=== PATIENT | female | born 1945 | race Caucasian/White ===

== ENCOUNTER 2017-09-10 09:32 | Outpatient (RCR) | payer MEDICARE, SELFPAY ==
[2017-09-10 10:31] LABS: Absolute Lymphocyte Count 2.01 X10^3/ul (0.83-4.51); Absolute Neutrophil Count 3.3 X10^3/uL (2.0-7.7); Basophil# 0.05 X10^3/uL; Basophil% 0.8 % (0-1); Eosinophil# 0.27 X10^3/uL; Eosinophils% 4.4 % (0-5); Hematocrit 36.4 % (37-47); Hemoglobin 11.6 g/dl (12.0-15.0); Lymphocyte # 2.01 X10^3/ul (4.0); Lymphocyte % 32.7 % (19-41); Mean Corp Hgb Conc 31.9 g/gl (32-36); Mean Corpuscular Hgb 30.1 pg (27.0-32.0); Mean Corpuscular Volume 94.3 fL (81-99); Mean Platelet Vol. 9.4 fl (6.2-12.0); Monocyte# 0.52 X10^3/uL; Monocyte% 8.5 % (0-10); Neutrophil # 3.27 X10^3/uL (2.7-7.7); Neutrophil % 53.3 % (47-70); Platelet Count 259 K/mm3 (150-450); RBC Distribution Width CV 14.9 % (11.6-14.6); RBC Distribution Width SD 49.8 fl (35.1-43.9); Red Blood Count 3.86 M/mm3 (4.2-5.4); White Blood Count 6.1 K/mm3 (4.4-11.0)
[2017-09-10 10:34] LABS: POSITIVE COUNT NO; POSITIVE DIFFERENTIAL NO; POSITIVE MORPHOLOGY NO
[2017-09-10 10:42] LABS: Erythrocyte Sedimentation Rate 10 mm/hr (0-30)
[2017-09-10 10:47] LABS: Carbamazepine (Tegretol) 10.2 ug/mL (4.0-12.0)
[2017-09-10 10:55] LABS: AST(SGOT) 8 U/L (15-37); Alanine Aminotransfer ALT/SGPT 17 U/L (12-78); Albumin, Serum 3.2 g/dL (3.4-5.0); Alkaline Phosphatase 72 U/L (45-117); Anion Gap 5 (5-15); BUN 18 mg/dL (7-18); BUN/Creat Ratio 23.2 RATIO (10-20); Calcium,Total 8.8 mg/dL (8.5-10.1); Chloride 104 mmol/L (98-107); Creatinine, Serum 0.78 mg/dL (0.55-1.02); EST Glomerular Filtration Rate 77 mL/min (>60); Est Glom Filt Rate - Afr Amer 94 mL/min (>60); Globulin 3.3 g/dL (2.2-4.2); Glucose 95 mg/dL (70-110); Protein, Total 6.5 g/dL (6.4-8.2); Sodium Level 140 mmol/L (136-145)
== END 2017-09-10 10:00 | disposition home or self-care (01) ==
LOC: LAB 09:32
PROVIDERS: Family Provider Family Medicine; PCP Family Medicine; Visit Provider Psychiatry & Neurology Neurology
DX: G43.009 Migraine without aura, not intractable, without status migrainosus (principal); M31.6 Other giant cell arteritis; M54.2 Cervicalgia; R42 Dizziness and giddiness; E11.9 Type 2 diabetes mellitus without complications; I10 Essential (primary) hypertension; E78.00 Pure hypercholesterolemia, unspecified
CPT/HCPCS: 80053; 80156; 85025; 85652; 86140

== ENCOUNTER 2017-10-29 10:00 | Outpatient (RCR) | payer MEDICARE, SELFPAY ==
--- NOTE | 2017-09-19 11:14 | HP.PTEVAL_ITS ---
Patient's Visit Information STEWART MENDEZ is a 71 year old F referred to Physical Therapy by MD HUBERT Bhatti with a diagnosis of Neck Pain. 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 She thought it would go away but it has not gotten better. Is on medication which has helped a lot but she doesn 't want to be on medication forever. Agg: reaching overhead, grabbing from the floor. Nuerologist thinks its from her neck. Takes medication, nap and then the pain goes away. She is tender along the occiput. MERCADO are normal on the temples. Has a MERCADO daily most of the time its a whisper and she pushes through. MERCADO only stop her only 1x a week. No blurred vision or dizziness. Sensative to light and sound all the time. No radiating pain. X-rays of the neck which showed arthritis. Has not had an MRI but does not want to have one. She has had a CT Scan. Dr. Thomas is her neurologist. MERCADO are not worse or better they just stay the same. Sleep: can't sleep on the right side will hear a thumping that wakes her up. pmhx: HTN, auto immune disease Meds: Carbomazapene, herbosartin, Metformin, Prednisone. - Objective Posture: FH, RS, increased kyphosis. Gait: no deviation noted. Palpation: tender along upper trap, levator, SCM, temporalis, occiput. ROM: WNL in all planes. Strength: Cervical: 4+/5, Shoulder: 4+/5, Scap: fair - Goals Goal 1:: Patient will be I with HEP and progression. Goal Time Frame: 4-6 Weeks Goal 2:: Patient will report 1 MERCADO per week Goal Time Frame: 4-6 Weeks Goal 3:: Patient will maintain proper posture t/o tx session to demo increased scap s/s Goal Time Frame: 4-6 Weeks - Rehabilitation Potential Physical Therapy Diagnosis: Patient presents with hypomobility- she has poor posture leading to MERCADO Rehabilitation Potential: Good - Anticipated Interventions Patient/Client Instruction: Educate patient on: Benefits of Fitness Program For the Purpose of:: To increase tolerance to activity/condition/position Therapeutic Exercise to Include: Strength training, Endurance training, Body mechanics, Postural training, Scapular Strength/Stabilization For the Purpose of:: To improve muscle performance and motor function Manual Therapy Techniques to Include: Soft tissue mobilization For the Purpose of:: To improve muscle performance and motor function Thank you for the opportunity to evaluate your patient. For Medicare and Medicare HMO plans, please review the plan of care and approve it. It will need to be FAXED BACK to us at [phone] for Medicare purposes. Please let me know if there are questions or concerns regarding this plan of care. Physician Signature: Date:
--- NOTE | 2017-10-29 10:26 | HP.PTDCSUM ---
HP - PT D/C Summary It has been my pleasure to treat STEWART MENDEZ under orders from Jim Thomas MD, for the diagnosis of Neck Pain for a total of 5 visit(s). Discharge Date: Please see the following information for a summary of their discharge status. - Subjective Subjective: Patient reports that she feels that she is better- the MERCADO are not just mild and she has not had a bad MERCADO for a few weeks. patient is sleeping well- at night and does nap during the day. - Overall Improvement % Improvement: 80 - Objective Objective/Function: Posture: improved- mild FH- sitting up taller. palpation: not tender- does have increased muscle tightness in UT. ROM: WNl in all planes. Strength: 5/5 throughout UE- Scap: fair - Goals Goal 1:: Patient will be I with HEP and progression. Goal Progress: Goal Met Goal 2:: Patient will report 1 MERCADO per week Goal Progress: Progressing Goal 3:: Patient will maintain proper posture t/o tx session to demo increased scap s/s Goal Progress: Goal Met - Plan Plan: Discharge to I HEP - D/C Information If there are questions or concerns regarding this patient's physical therapy, please feel free to call me at [phone]. Thank you for the referral of this patient. Sincerely, Ericka Jason
== END 2017-10-29 19:00 | disposition home or self-care (01) ==
LOC: PT 10:00
PROVIDERS: Family Provider Family Medicine; PCP Family Medicine; Visit Provider Psychiatry & Neurology Neurology
DX: M54.2 Cervicalgia (principal)
CPT/HCPCS: 97110; 97140; 97161; 97530

== ENCOUNTER → 2017-12-17 10:07 | Outpatient (CLI) | payer MEDICARE, SELFPAY ==
[2017-12-17 11:09] LABS: Basophil# 0.05 X10^3/uL; Eosinophil# 0.21 X10^3/uL; Hematocrit 37.7 % (37-47); Lymphocyte % 28.6 % (19-41); Mean Corp Hgb Conc 31.8 g/gl (32-36); Mean Corpuscular Hgb 29.7 pg (27.0-32.0); Mean Corpuscular Volume 93.3 fL (81-99); Mean Platelet Vol. 9.1 fl (6.2-12.0); Monocyte# 0.46 X10^3/uL; Monocyte% 8.8 % (0-10); Neutrophil # 3.02 X10^3/uL (2.7-7.7); Neutrophil % 57.4 % (47-70); Platelet Count 264 K/mm3 (150-450); RBC Distribution Width CV 14.3 % (11.6-14.6); Red Blood Count 4.04 M/mm3 (4.2-5.4); White Blood Count 5.3 K/mm3 (4.4-11.0)
[2017-12-17 11:10] LABS: Erythrocyte Sedimentation Rate 15 mm/hr (0-30)
[2017-12-17 11:11] LABS: POSITIVE COUNT NO; POSITIVE DIFFERENTIAL NO; POSITIVE MORPHOLOGY NO
[2017-12-17 11:15] LABS: Microalbumin,Random Urine 6.4 mg/L (NO RANGE EST.); Microalbumin:Creatinine Ratio 8.2 mg/g CRE (<30 mg/g CRE)
[2017-12-17 11:27] LABS: Hemoglobin A1c 6.6 % (4.2-6.3)
[2017-12-17 11:31] LABS: Carbamazepine (Tegretol) 10.7 ug/mL (4.0-12.0)
[2017-12-17 11:40] LABS: AST(SGOT) 12 U/L (15-37); Alanine Aminotransfer ALT/SGPT 18 U/L (13-56); Albumin, Serum 3.2 g/dL (3.2-5.0); Alkaline Phosphatase 70 U/L (45-117); Anion Gap 5 (5-15); BUN 15 mg/dL (7-18); BUN/Creat Ratio 18.6 RATIO (10-20); Calcium,Total 8.7 mg/dL (8.5-10.1); Chloride 101 mmol/L (98-107); EST Glomerular Filtration Rate 74 mL/min (>60); Est Glom Filt Rate - Afr Amer 90 mL/min (>60); Globulin 3.3 g/dL (2.2-4.2); Glucose 97 mg/dL (74-106); Potassium 4.3 mmol/L (3.5-5.1); Protein, Total 6.5 g/dL (6.4-8.2); Sodium Level 137 mmol/L (136-145); Thyroid Stim Hormone (TSH) 2.26 uIU/mL (0.358-3.74)
== END ==
PROVIDERS: Family Provider Family Medicine; PCP Family Medicine; Visit Provider Family Medicine
DX: E11.9 Type 2 diabetes mellitus without complications (principal); E03.9 Hypothyroidism, unspecified; Z79.899 Other long term (current) drug therapy; G43.009 Migraine without aura, not intractable, without status migrainosus; M31.6 Other giant cell arteritis; M54.2 Cervicalgia; R51 Headache
CPT/HCPCS: 36415; 80053; 80156; 82043; 82570; 83036; 84443; 85025; 85652; 86140

== ENCOUNTER 2018-03-12 11:09 | Outpatient (RCR) | payer MEDICARE, SELFPAY ==
[2018-03-12 12:15] LABS: Erythrocyte Sedimentation Rate 17 mm/hr (0-30)
[2018-03-12 12:27] LABS: Absolute Lymphocyte Count 1.47 X10^3/ul (0.83-4.51); Absolute Neutrophil Count 4.5 X10^3/uL (2.0-7.7); Basophil# 0.04 X10^3/uL; Basophil% 0.6 % (0-1); Eosinophil# 0.15 X10^3/uL; Eosinophils% 2.2 % (0-5); Hematocrit 36.5 % (37-47); Hemoglobin 11.4 g/dl (12.0-15.0); Lymphocyte # 1.47 X10^3/ul (4.0); Lymphocyte % 21.8 % (19-41); Mean Corp Hgb Conc 31.2 g/gl (32-36); Mean Corpuscular Hgb 29.3 pg (27.0-32.0); Mean Corpuscular Volume 93.8 fL (81-99); Mean Platelet Vol. 9.6 fl (6.2-12.0); Monocyte# 0.56 X10^3/uL; Monocyte% 8.3 % (0-10); Neutrophil # 4.51 X10^3/uL (2.7-7.7); Neutrophil % 66.8 % (47-70); POSITIVE COUNT NO; POSITIVE DIFFERENTIAL NO; POSITIVE MORPHOLOGY NO; Platelet Count 240 K/mm3 (150-450); RBC Distribution Width CV 14.9 % (11.6-14.6); RBC Distribution Width SD 50.7 fl (35.1-43.9); Red Blood Count 3.89 M/mm3 (4.2-5.4); White Blood Count 6.8 K/mm3 (4.4-11.0)
== END 2018-03-12 12:00 | disposition home or self-care (01) ==
LOC: LAB 11:09
PROVIDERS: Family Provider Family Medicine; PCP Family Medicine
DX: M31.6 Other giant cell arteritis (principal)
CPT/HCPCS: 36415; 85025; 85652; 86140

== ENCOUNTER → 2018-03-26 09:31 | Outpatient (CLI) | payer MEDICARE, SELFPAY ==
[2018-03-26 11:20] LABS: Carbamazepine (Tegretol) 7.6 ug/mL (4.0-12.0)
[2018-03-26 11:21] LABS: AST(SGOT) 12 U/L (15-37); Alanine Aminotransfer ALT/SGPT 19 U/L (13-56); Albumin, Serum 3.2 g/dL (3.2-5.0); Alkaline Phosphatase 69 U/L (45-117); Anion Gap 6 (5-15); BUN 18 mg/dL (7-18); Calcium,Total 8.8 mg/dL (8.5-10.1); Chloride 106 mmol/L (98-107); Creatinine, Serum 0.82 mg/dL (0.55-1.02); EST Glomerular Filtration Rate 73 mL/min (>60); Est Glom Filt Rate - Afr Amer 88 mL/min (>60); Globulin 3.3 g/dL (2.2-4.2); Glucose 99 mg/dL (74-106); Potassium 4.1 mmol/L (3.5-5.1); Protein, Total 6.5 g/dL (6.4-8.2); Sodium Level 143 mmol/L (136-145)
== END ==
PROVIDERS: Family Provider Family Medicine; PCP Family Medicine; Visit Provider Psychiatry & Neurology Neurology
DX: E78.5 Hyperlipidemia, unspecified (principal); M31.6 Other giant cell arteritis; R79.82 Elevated C-reactive protein (CRP); R41.3 Other amnesia; R51 Headache
CPT/HCPCS: 36415; 80053; 80156; 86141

== ENCOUNTER → 2018-06-05 08:43 | Outpatient (CLI) | payer MEDICARE, SELFPAY ==
[2018-06-05 09:31] LABS: Erythrocyte Sedimentation Rate 10 mm/hr (0-30)
[2018-06-05 09:33] LABS: Absolute Lymphocyte Count 1.54 X10^3/ul (0.83-4.51); Absolute Neutrophil Count 3.1 X10^3/uL (2.0-7.7); Basophil# 0.03 X10^3/uL; Basophil% 0.6 % (0-1); Eosinophil# 0.21 X10^3/uL; Hematocrit 36.7 % (37-47); Hemoglobin 11.6 g/dl (12.0-15.0); Lymphocyte # 1.54 X10^3/ul (4.0); Lymphocyte % 29.1 % (19-41); Mean Corp Hgb Conc 31.6 g/gl (32-36); Mean Corpuscular Hgb 29.7 pg (27.0-32.0); Mean Corpuscular Volume 93.9 fL (81-99); Mean Platelet Vol. 9.1 fl (6.2-12.0); Monocyte# 0.45 X10^3/uL; Monocyte% 8.5 % (0-10); Neutrophil # 3.05 X10^3/uL (2.7-7.7); Neutrophil % 57.6 % (47-70); Platelet Count 230 K/mm3 (150-450); RBC Distribution Width CV 14.6 % (11.6-14.6); RBC Distribution Width SD 49.6 fl (35.1-43.9); Red Blood Count 3.91 M/mm3 (4.2-5.4); White Blood Count 5.3 K/mm3 (4.4-11.0)
[2018-06-05 09:34] LABS: POSITIVE COUNT NO; POSITIVE DIFFERENTIAL NO; POSITIVE MORPHOLOGY NO
[2018-06-05 09:48] LABS: Hemoglobin A1c 6.8 % (4.2-6.3)
[2018-06-05 10:01] LABS: AST(SGOT) 9 U/L (15-37); Alanine Aminotransfer ALT/SGPT 18 U/L (13-56); Albumin, Serum 3.2 g/dL (3.2-5.0); Alkaline Phosphatase 64 U/L (45-117); Anion Gap 6 (5-15); BUN 15 mg/dL (7-18); BUN/Creat Ratio 16.7 RATIO (10-20); Calcium,Total 9.1 mg/dL (8.5-10.1); Chloride 100 mmol/L (98-107); EST Glomerular Filtration Rate 65 mL/min (>60); Est Glom Filt Rate - Afr Amer 79 mL/min (>60); Globulin 3.2 g/dL (2.2-4.2); Glucose 103 mg/dL (74-106); Potassium 4.1 mmol/L (3.5-5.1); Protein, Total 6.4 g/dL (6.4-8.2); Sodium Level 138 mmol/L (136-145)
== END ==
PROVIDERS: Family Provider Family Medicine; PCP Family Medicine; Referring Provider Psychiatry & Neurology Neurology; Visit Provider Psychiatry & Neurology Neurology
DX: G47.33 Obstructive sleep apnea (adult) (pediatric) (principal); R41.3 Other amnesia; R51 Headache; M31.6 Other giant cell arteritis; R79.82 Elevated C-reactive protein (CRP); E11.9 Type 2 diabetes mellitus without complications
CPT/HCPCS: 36415; 80053; 80156; 83036; 85025; 85652; 86140

== ENCOUNTER → 2019-03-19 08:33 | Outpatient (CLI) | payer MEDICARE, SELFPAY ==
[2019-03-10 10:42] VITALS: BMI 37.3
--- NOTE | 2019-03-19 08:38 | BI_ITS ---
MAMMOGRAPHY - BILATERAL SCREENING REASON FOR EXAM: Female, 73 years old. Routine annual screening examination. PERTINENT HISTORY: Non-contributory. TECHNIQUE: Digital bilateral breast lizeth (3D mammographic acquisition) in the CC and MLO projections. 2-D mediolateral oblique (MLO) and craniocaudad (CC) views of both breasts were obtained. CAD: Full Field Digital Mammography with Computer Added Detection was performed. COMPARISON: Comparison is made with prior outside examination dated January 30, 2018. FINDINGS: Breast Composition: There are scattered areas of fibroglandular density. There are no dominant masses or suspicious calcifications. Bilateral secretory calcifications which are unchanged. I suspect there are multiple calcifications in the inferior medial aspect of the left breast. These have increased in number as compared to prior study. The patient will be recalled for tangential views. No other significant abnormalities are identified. BI/SCREEN MAMM (CAD) W/LIZETH BILAT IMPRESSION: Findings suggestive of a increasing dermal calcifications in the inferior medial aspect of the left breast as described. The patient will be recalled for additional views including tangential views. Recall Side: Left Breast ASSESSMENT CATEGORY: BIRADS Category 0: Incomplete. Need additional imaging evaluation. A letter regarding these results will be sent to the patient by the facility within 30 days. Approximately 10% of breast cancers are not detected by mammography. A normal mammogram should not delay biopsy of a clinically suspicious abnormality. [id number] Electronically Signed: Dick Cotto, at 10:12 EDT , Service support ,
== END ==
PROVIDERS: Family Provider Family Medicine; PCP Family Medicine; Referring Provider Nurse Practitioner Women's Health; Visit Provider Nurse Practitioner Women's Health
DX: Z12.31 Encounter for screening mammogram for malignant neoplasm of breast (principal)
CPT/HCPCS: 77063; 77067

== ENCOUNTER → 2019-03-20 13:18 | Outpatient (CLI) | payer MEDICARE, SELFPAY ==
[2019-03-10 10:42] VITALS: BMI 37.3
--- NOTE | 2019-03-20 13:21 | BI_ITS ---
MAMMOGRAPHY - UNILATERAL DIAGNOSTIC: LEFT BREAST REASON FOR EXAM: Female, 73 years old. Abnormal screening mammogram. PERTINENT HISTORY: Non-contributory. TECHNIQUE: Tangential views of the left breast were obtained. CAD: Full Field Digital Mammography with Computer Added Detection was performed. COMPARISON: Comparison is made with prior study dated March 19, 2019. FINDINGS: Breast Composition: There are scattered areas of fibroglandular density. The calcifications are dermal in nature. Routine mammographic follow-up is recommended. No other significant abnormalities are identified. BI/DIAG MAMM W/CAD, UNILAT IMPRESSION: Stable unilateral diagnostic mammogram. One year follow-up mammogram recommended. (A) ASSESSMENT CATEGORY: BIRADS Category 2: Benign. A letter regarding these results will be sent to the patient by the facility within 30 days. Approximately 10% of breast cancers are not detected by mammography. A normal mammogram should not delay biopsy of a clinically suspicious abnormality. Electronically Signed: Dick Cotto, at 15:04 EDT , Service support ,
== END ==
PROVIDERS: Family Provider Family Medicine; PCP Family Medicine; Referring Provider Nurse Practitioner Women's Health; Visit Provider Nurse Practitioner Women's Health
DX: R92.0 Mammographic microcalcification found on diagnostic imaging of breast (principal)
CPT/HCPCS: 77065

== ENCOUNTER → 2020-04-09 10:39 | Outpatient (CLI) | payer MEDICARE, SELFPAY ==
[2019-09-26 12:34] VITALS: BMI 37.3
[2020-04-05 10:11] VITALS: BMI 37.3
--- NOTE | 2020-04-09 10:40 | BI_ITS ---
MAMMOGRAPHY - BILATERAL SCREENING REASON FOR EXAM: Female, 74 years old. Routine annual screening examination. PERTINENT HISTORY: Non-contributory. TECHNIQUE: Digital bilateral breast lizeth (3D mammographic acquisition) in the CC and MLO projections. 2-D mediolateral oblique (MLO) and craniocaudad (CC) views of both breasts were obtained. A tangential view of the left breast was obtained as well for dermal calcifications. CAD: Full Field Digital Mammography with Computer Added Detection was performed. COMPARISON: Comparison is made with prior study 03/19/2019. FINDINGS: Breast Composition: There are scattered areas of fibroglandular density. There are no dominant masses or suspicious calcifications. Stable scattered bilateral calcifications. Stable dermal calcifications seen in the inferior medial aspect of the left breast. There are stable small benign appearing bilateral axillary lymph nodes. No other significant abnormalities are identified. There has been no significant change since the prior study. BI/SCREEN MAMM (CAD) W/LIZETH BILAT IMPRESSION: Stable bilateral screening mammogram. Yearly follow-up mammogram recommended. (A) ASSESSMENT CATEGORY: BIRADS Category 2: Benign. A letter regarding these results will be sent to the patient by the facility within 30 days. Approximately 10% of breast cancers are not detected by mammography. A normal mammogram should not delay biopsy of a clinically suspicious abnormality. [id number] Electronically Signed: Dick Cotto, at 12:43 EDT , Service support ,
== END ==
PROVIDERS: PCP Family Medicine; Referring Provider Nurse Practitioner Women's Health; Visit Provider Nurse Practitioner Women's Health
DX: Z12.31 Encounter for screening mammogram for malignant neoplasm of breast (principal)
CPT/HCPCS: 77063; 77067

== ENCOUNTER → 2021-01-07 15:14 | Outpatient (CLI) | payer MEDICARE, SELFPAY ==
[2021-01-05 11:28] VITALS: BMI 37.3
--- NOTE | 2021-01-07 15:16 | US_ITS ---
STUDY: ULTRASOUND OF THE FEMALE PELVIS - COMPLETE REASON FOR EXAM: Female, 75 years old. uterine fibroid seen on MRI done elsewhere LMP: TECHNIQUE: Transabdominal and Transvaginal TECHNICAL QUALITY: Adequate. COMPARISON: None. FINDINGS: The uterus is anteverted and is in a midline position. The uterus measures 9.3 x 3.5 x 1.7 cm. Normal uterine cervix. The endometrium measures 3 mm in thickness, and is hyperechoic. There is no demonstrated endometrial mass. Diffusely heterogeneous uterus. There is a 6 cm lower uterine fibroid. Neither ovary is seen. There is no fluid in the cul-de-sac. The pre void volume of the bladder was 208 ml. US/Transvaginal Non- IMPRESSION: Diffusely heterogeneous uterus with a 6 cm lower uterine fibroid. Electronically Signed: Jose Rodney MD at 23:57 EDT , Service support ,
--- NOTE | 2021-01-07 15:16 | US_ITS ---
STUDY: ULTRASOUND OF THE FEMALE PELVIS - COMPLETE REASON FOR EXAM: Female, 75 years old. uterine fibroid seen on MRI done elsewhere LMP: TECHNIQUE: Transabdominal and Transvaginal TECHNICAL QUALITY: Adequate. COMPARISON: None. FINDINGS: The uterus is anteverted and is in a midline position. The uterus measures 9.3 x 3.5 x 1.7 cm. Normal uterine cervix. The endometrium measures 3 mm in thickness, and is hyperechoic. There is no demonstrated endometrial mass. Diffusely heterogeneous uterus. There is a 6 cm lower uterine fibroid. Neither ovary is seen. There is no fluid in the cul-de-sac. The pre void volume of the bladder was 208 ml. US/Pelvic (Non ) IMPRESSION: Diffusely heterogeneous uterus with a 6 cm lower uterine fibroid. Electronically Signed: Jose Rodney MD at 23:57 EDT , Service support ,
== END ==
PROVIDERS: PCP Family Medicine; Visit Provider Nurse Practitioner Women's Health
DX: D25.9 Leiomyoma of uterus, unspecified (principal)
CPT/HCPCS: 76830; 76856

== ENCOUNTER 2024-06-05 09:30 | Outpatient (RCR) | payer MEDICARE, SELFPAY ==
--- NOTE | 2024-04-24 10:46 | HP.PTEVAL ---
Patient's Visit Information Visit Information Visit Information: STEWART MENDEZ is a 78 year old F referred to Physical Therapy by Dr. Nicko Dubose MD with a diagnosis of sciatica. Date of Evaluation: 04/24/24 Physical Therapist: Manjit Marie, DPT, OCS, CSCS Visit Plan Frequency: 2x /Week Duration: 4-6 Weeks Plan: 2x/week for 4-6(start two as patient is going out of town) Ensure doing LB ROM(IE: trunk rotation supine, SKC, PPT 15x 2x/day and NS psoitioning upon stance.) Progress to mat and core stregth with pics(keep it simple as she does not love exercise), also rollout and stretch quad/psoas B. progression of functional walking Subjective Subjective: H/o Sciatica. R buttock, LB and down leg. It got bad 3 months ago possibly overdoing it in chair yoga class maybe. Walked alot on family vacation and it really hurt. Doctor said it was sciatica and prescribed PT. Then it went to L hip and buttocks and made it hard to get out of bed shooting as soon as she got out of bed. SKC and tylenol seems to help. Used cane to get around. This week is better and she thinks it is going away. Currently is 80% back to normal. It jhust smarts in her LB if she moves worng. Achiness in LB. Can ache in legs. has done very little lately and wants to get back to her workouts with [employer]personal development coach. Sleep is not a problem Not employed, retired. Healthy spends day Hp workout, hangs out with friends, takes walks, writing. Typically comfortable sitting but hard to get up. Pain Lb and legs: Pain Intensity (Out of 10): 0 Pain Intensity Range: 0 and 5 Comment: used to be a 7/10, hurts to move suddenly. Objective Objective: Walks slowly with cane and no antalgia today, Can walk without cane safely. Trasnfers are expectant of pain but not bad today. LB AROM ext painful and mod limited, B SB stiff but no pain, flexion stiff and slow and hands used to come back up due to weakness, not pain. psaos and quad mod tight, HS mod tight at -28 90/90 test with just stretching. - slump, - SLR. Discomfort to lie flat alleved with knees bent. reflexes 2/3 patella and achilles Sensation in LE WNL to gross light touch. strength hips 3+, knees 4- and ankles 4 without myotomal problems. Balance/Special Test Scores Oswestry Low Back Score: 13 Goals Goal 1:: Walk community nwithout AD without increased pain Goal Time Frame: 4-6 Weeks Goal 2:: I appropriate HEp to limit future problems(LB ROM, psoas stretch adn core strength. Goal Time Frame: 4-6 Weeks Goal 3:: Pt feel 100% back to normal activity Goal Time Frame: 4-6 Weeks Goal 4:: oswestry 5 or less Goal Time Frame: 4-6 Weeks Rehabilitation Potential Physical Therapy Diagnosis: LBP and leg pain and weakness and limited ROM limting comfortable function. Rehabilitation Potential: Fair Anticipated Interventions Patient/Client Instruction: Educate patient on: Condition and Plan of Care For the Purpose of:: To decrease pain, To increase ROM, To improve muscle performance and motor function and To increase tolerance to activity/condition/position Therapeutic Exercise to Include: Strength training, Postural training, Flexibilty training, Passive ROM and Active ROM For the Purpose of:: To decrease pain, To increase ROM, To improve nutrient delivery to tissue, To improve muscle performance and motor function, To increase tolerance to activity/condition/position and To improve gait and locomotor functions Thermo therapy (hot pack): Yes For the Purpose of:: To decrease pain Text: Thank you for the opportunity to evaluate your patient. For Medicare and Medicare HMO plans, please review the plan of care and approve it. It will need to be FAXED BACK to us at [phone] for Medicare purposes. For Medicare only, by signing this I certify the plan of care. Please let me know if there are questions or concerns regarding this plan of care. Physician Signature: Date:
--- NOTE | 2024-06-05 10:18 | HP.PTDCSUM ---
Discharge Summary D/C summary: It has been my pleasure to treat STEWART MENDEZ referred by Dr. Nicko Dubose MD, with the diagnosis of sciatica for a total of 9 visit(s). Discharge Date: 06/05/24 Please see the following information for a summary of their discharge status. Subjective Subjective: Now just slight discomfort. Still in small of back and R SI adn L SI and stretches help. Took a long walk yesterday and struggled a little on way back after 20 min. pain was 1/2 out of 10 and then rest helped. Don't need cane and not afraid of falling anymore. See doctor end of month. Exercises are really helpful. Wants to continue I and will start training with driver trainer. Pain Lb and legs: Pain Intensity (Out of 10): 0 Overall Improvement % Improvement: 90 Objective Objective/Function: Good LB AROM today without increased pain, stiff upon arising but loosens up well. Walks normal without gait deviaitions. Pt desires to continue on her own via HEP and will get back to her driver trainer, Goals Goal 1:: Walk community nwithout AD without increased pain Goal Progress: shor tdistances. Goal 2:: I appropriate HEp to limit future problems(LB ROM, psoas stretch adn core strength. Goal Progress: Goal Met Goal 3:: Pt feel 100% back to normal activity Goal Progress: 90 Goal 4:: oswestry 5 or less Goal Progress: Progressing Plan Plan: d/c to HEP D/C Information d/c sentence: If there are questions or concerns regarding this patient's physical therapy, please feel free to call me at [phone]. Thank you for the referral of this patient. Sincerely, Manjit Marie, DPT, OCS, CSCS Balance/Gait/Functional tests Balance/Special Test Scores Oswestry Low Back Score: 8 Improvement % Improvement: 90
== END 2024-06-05 19:00 | disposition home or self-care (01) ==
LOC: PT 09:30
PROVIDERS: PCP Family Medicine; Referring Provider Family Medicine; Visit Provider Family Medicine
DX: M54.31 Sciatica, right side (principal)
CPT/HCPCS: 97110; 97140; 97161; 97530

== ENCOUNTER → 2024-09-16 | Outpatient (CLI) | payer MEDICARE, SELFPAY | END | disposition home or self-care (01) | LOC: SL 14:08 | PROVIDERS: PCP Family Medicine; Referring Provider Nurse Practitioner Primary Care; Visit Provider Nurse Practitioner Primary Care | DX: G47.33 Obstructive sleep apnea (adult) (pediatric) (principal) | CPT/HCPCS: 98960; G0463 ==